=== PATIENT | male | born 1985 | race American Indian/Alaskan Native ===

== ENCOUNTER 2019-04-23 14:12 | Emergency (ER) | payer SELFPAY ==
[2019-04-23 14:30] VITALS: BP 132/90
--- NOTE | 2019-04-23 14:42 | Emergency Department Report ---
Blank Doc - Documentation Documentation: 33-year-old male that presents with n/v, SOB, and CP. This initial assessment/diagnostic orders/clinical plan/treatment(s) is/are subject to change based on patients health status, clinical progression and re- assessment by fellow clinical providers in the ED. Further treatment and workup at subsequent clinical providers discretion. Patient/guardian urged not to elope from the ED as their condition may be serious if not clinically assessed and managed. Initial orders include: cardiac protocol
--- NOTE | 2019-04-23 15:10 | XRay Report ---
CHEST 2 VIEWS INDICATION: Chest Pain. COMPARISON: None FINDINGS: Support devices: None. Heart: Within normal limits. Lungs/pleura: No acute air space or interstitial disease. No pneumothorax. Additional findings: None. IMPRESSION: No acute findings. Signer Name: Arturo Cox Jr, MD Signed: 04/23/2019 3:06 PM Workstation Name: [id number]
[2019-04-23 15:29] LABS: Basophils # (Auto) 0.1 K/mm3 (0.0-0.1); Basophils % (Auto) 0.8 % (0.0-1.8); Eosinophils % (Auto) 0.4 % (0.0-4.3); Hematocrit 47.3 % (35.5-45.6); Hemoglobin 15.4 gm/dl (11.8-15.2); Lymphocytes # (Auto) 1.3 K/mm3 (1.2-5.4); Lymphocytes % (Auto) 13.1 % (13.4-35.0); Mean Corpuscular HGB Conc 33 % (32-34); Mean Corpuscular Volume 87 fl (84-94); Monocytes # (Auto) 1.4 K/mm3 (0.0-0.8); Monocytes % (Auto) 14.1 % (0.0-7.3); Platelet Count 362 K/mm3 (140-440); Red Blood Count 5.43 M/mm3 (3.65-5.03); Red Cell Distribution Width 14.1 % (13.2-15.2)
[2019-04-23] MEDS ORDERED: MORPHINE 4 MG/1 ML INJ IV ONE (15:50)
[2019-04-23] MEDS ORDERED: SODIUM CHLORIDE 0.9% 1000 ML 1,000 ML IV ONE (15:50)
[2019-04-23] MEDS ORDERED: KETOROLAC 30 MG/1 ML INJ IV ONE (15:50)
[2019-04-23 15:53] LABS: Alanine Aminotransferase 13 units/L (7-56); Albumin 3.8 g/dL (3.9-5); BUN/Creatinine Ratio 16; Blood Urea Nitrogen 16 mg/dL (9-20); Calcium 9.8 mg/dL (8.4-10.2); Hemolysis Index 6
[2019-04-23 16:32] LABS: INR 1.12 (0.87-1.13)
[2019-04-23 16:33] LABS: Partial Thromboplastin Time 27.2 Sec. (24.2-36.6)
--- NOTE | 2019-04-23 16:52 | Vascular Lab Report ---
DUPLEX DOPPLER LOWER EXTREMITY VEINS, RIGHT INDICATION: right calf pain after injury. TECHNIQUE: Duplex doppler imaging was performed through the veins of the right lower extremity using venous comp ression and other maneuvers. COMPARISON: No relevant prior imaging study available. FINDINGS: Right Common femoral vein: Negative. Right Superficial femoral vein: Negative. Right Popliteal vein: Negative. Right Calf veins: Negative. Additional findings: None.. IMPRESSION: 1. No sonographic evidence for DVT in the right lower extremity. Signer Name: Mitchell Suarez MD Signed: 04/23/2019 4:48 PM Workstation Name: [id number]
--- NOTE | 2019-04-23 17:11 | Emergency Department Report ---
<LISA PICKENS - Last Filed: 04/23/19 17:08> ED General Adult HPI - General Chief complaint: Nausea/Vomiting/Diarrhea Stated complaint: CATHY/N/V Time Seen by Provider: 04/23/19 14:41 Source: patient, EMS Mode of arrival: Wheelchair Limitations: No Limitations - History of Present Illness Initial comments: Patient is a 33-year-old F [place] male who is presenting with 2 days of chest discomfort in the center chest with shortness of breath and nausea vomiting. Patient states that his chest feels tight and he has had a very mild nonproductive cough. Patient suffered a crush injury to his left foot approximately 1 week ago. He states his multiple fractures. Patient is in a walking boot at home but does not have it on at this time. Patient states that he is has some pain in his left calf as well. Patient denies fever but does have chills. Patient denies nausea vomiting diarrhea at this time. Severity scale (0 -10): 10 - Related Data Previous Rx's Medication Instructions Recorded Last Taken Type Benzonatate [Tessalon Perles] 100 mg PO Q8HR #20 capsule 04/23/19 Unknown Rx Ondansetron [Zofran ODT TAB] 8 mg PO Q12HR #14 tab.rapdis 04/23/19 Unknown Rx Allergies Allergy/AdvReac Type Severity Reaction Status Date / Time No Known Allergies Allergy Unverified 04/23/19 14:22 ED Review of Systems Comment: All other systems reviewed and negative ED Past Medical Hx - Past Medical History Previous Medical History?: No - Surgical History Past Surgical History?: No - Social History Smoking Status: Current Every Day Smoker Substance Use Type: None - Medications Home Medications: Home Medications Medication Instructions Recorded Confirmed Last Taken Type Benzonatate [Tessalon Perles] 100 mg PO Q8HR #20 capsule 04/23/19 Unknown Rx Ondansetron [Zofran ODT TAB] 8 mg PO Q12HR #14 tab.rapdis 04/23/19 Unknown Rx ED Physical Exam - General Limitations: No Limitations General appearance: alert, in no apparent distress - Head Head exam: Present: atraumatic, normocephalic - Eye Eye exam: Present: normal appearance - ENT ENT exam: Present: mucous membranes moist - Neck Neck exam: Present: normal inspection - Respiratory Respiratory exam: Present: normal lung sounds bilaterally, chest wall tenderness. Absent: respiratory distress, wheezes, rales, rhonchi - Cardiovascular Cardiovascular Exam: Present: normal rhythm, tachycardia. Absent: systolic murmur, diastolic murmur, rubs, gallop - GI/Abdominal GI/Abdominal exam: Present: soft, normal bowel sounds. Absent: distended, tenderness, guarding, rebound - Rectal Rectal exam: Present: deferred - Extremities Exam Extremities exam: Present: normal inspection, tenderness, pedal edema, calf tenderness - Back Exam Back exam: Present: normal inspection - Neurological Exam Neurological exam: Present: alert, oriented X3 - Psychiatric Psychiatric exam: Present: normal affect, normal mood - Skin Skin exam: Present: warm, dry, intact, normal color. Absent: rash ED Course - Reevaluation(s) Reevaluation #1: 04/23/19 17:09 Patient is a 33-year-old F [place] male is presenting with calf pain and shortness of breath with chest pain for the last 2 days. Patient is suffered a broken foot approximately week ago. Patient's risk factors for thrombo-embolic events is his recent fracture and immobilization. Ultrasound and VQ scan have been ordered. VQ scan was done secondary to the patient having small veins and being unable to obtain a large enough IV for contrast to be given through. ED Medical Decision Making - Lab Data Result diagrams: 04/23/19 15:12 04/23/19 15:12 Lab Results 04/23/19 04/23/19 04/23/19 Range/Units 15:12 15:12 16:03 WBC 9.6 (4.5-11.0) K/mm3 RBC 5.43 H (3.65-5.03) M/mm3 Hgb 15.4 H (11.8-15.2) gm/dl Hct 47.3 H (35.5-45.6) % MCV 87 (84-94) fl MCH 28 (28-32) pg MCHC 33 (32-34) % RDW 14.1 (13.2-15.2) % Plt Count 362 (140-440) K/mm3 Lymph % (Auto) 13.1 L (13.4-35.0) % [place] % (Auto) 14.1 H (0.0-7.3) % Eos % (Auto) 0.4 (0.0-4.3) % Baso % (Auto) 0.8 (0.0-1.8) % Lymph # 1.3 (1.2-5.4) K/mm3 [place] # 1.4 H (0.0-0.8) K/mm3 Eos # 0.0 (0.0-0.4) K/mm3 Baso # 0.1 (0.0-0.1) K/mm3 Seg Neutrophils % 71.6 H (40.0-70.0) % Seg Neutrophils # 6.9 (1.8-7.7) K/mm3 PT 14.6 (12.2-14.9) Sec. INR 1.12 (0.87-1.13) APTT 27.2 (24.2-36.6) Sec. Sodium 138 (137-145) mmol/L Potassium 4.3 (3.6-5.0) mmol/L Chloride 98.6 (98-107) mmol/L Carbon Dioxide 21 L (22-30) mmol/L Anion Gap 23 mmol/L BUN 16 (9-20) mg/dL Creatinine 1.0 (0.8-1.5) mg/dL Estimated GFR > 60 ml/min BUN/Creatinine Ratio 16 % Glucose 90 (75-100) mg/dL Calcium 9.8 (8.4-10.2) mg/dL Total Bilirubin 0.60 (0.1-1.2) mg/dL AST 12 (5-40) units/L ALT 13 (7-56) units/L Alkaline Phosphatase 77 (35-129) units/L Troponin T < 0.010 (0.00-0.029) ng/mL Total Protein 9.3 H (6.3-8.2) g/dL Albumin 3.8 L (3.9-5) g/dL Albumin/Globulin Ratio 0.7 % - EKG Data -: EKG Interpreted by Ar EKG shows normal: sinus rhythm (rate 97), axis, intervals, QRS complexes, ST-T waves - EKG Data Interpretation: normal EKG ED Disposition Clinical Impression: Acute chest pain, Viral syndrome, Gastroenteritis, Pain due to fracture Disposition: TO HOME OR SELFCARE Condition: Stable Instructions: Chest Pain (ED), Viral Syndrome (ED), Acute Nausea and Vomiting (ED) Referrals: PRIMARY CARE, [Primary Care Provider] - 3-5 Days SELIN FIELD MD [Staff Physician] - 3-5 Days <OSCARSHAWNAЕКАТЕРИНА - Last Filed: 04/23/19 18:57> ED Review of Systems ROS: Stated complaint: CATHY/N/V Other details as noted in HPI ED Course Vital Signs 04/23/19 14:28 Temperature 99.2 F Pulse Rate 103 H Respiratory 22 Rate Blood Pressure 132/90 O2 Sat by Pulse 100 Oximetry ED Medical Decision Making - Lab Data Result diagrams: 04/23/19 15:12 04/23/19 15:12 - Radiology Data Radiology results: report reviewed Patient Name: TANYA MOORE Gender: Male Date of : 1985 Referring Provider: LISA PICKENS Organization: [facility] Accession Number: [id number] Requested Date: April 23, 2019 16:05 Report Status: Final Requested Procedure: 1 Procedure Description: NM lung scan perf/vent Modality: NM Findings Reporting MD: Kenneth Bower Dictation Time: April 23, 2019 16:59 Ur Coordinator: Not available Machine Heel Seat Fitter Date: NM lung scan perf/vent INDICATION / CLINICAL INFORMATION: pleuritic chest pain. TRACER: Xenon-133 gas 13.93 mCi inhalation and technetium 99m MAA 5.1 mCi IV injection. COMPARISON: Chest x-ray 04/23/2019 FINDINGS: Nuclear medicine ventilation and perfusion lung imaging were performed. Both are homogeneous. No suspicious ventilation or perfusion defect. IMPRESSION: Normal VQ scan. Signer Name: Kenneth Bower MD Signed: 04/23/2019 4:59 PM Workstation Name: [id number] Critical care attestation.: If time is entered above; I have spent that time in minutes in the direct care of this critically ill patient, excluding procedure time. ED Disposition Is pt being admited?: No Does the pt Need Aspirin: No
--- NOTE | 2019-04-23 18:03 | Nuclear Medicine Report ---
NM lung scan perf/vent INDICATION / CLINICAL INFORMATION: pleuritic chest pain. TRACER: Xenon-133 gas 13.93 mCi inhalation and technetium 99m MAA 5.1 mCi IV injection. COMPARISON: Chest x-ray 04/23/2019 FINDINGS: Nuclear medicine ventilation and perfusion lung imaging were performed. Both are homogeneous. No susp icious ventilation or perfusion defect. IMPRESSION: Normal VQ scan. Signer Name: Kenneth Bower MD Signed: 04/23/2019 5:59 PM Workstation Name: [id number]
== END 2019-04-23 19:18 | disposition home or self-care (01) ==
LOC: ED 14:12
DX: K52.9 Noninfective gastroenteritis and colitis, unspecified (principal); B34.9 Viral infection, unspecified; M79.605 Pain in left leg; F17.200 Nicotine dependence, unspecified, uncomplicated
CPT/HCPCS: 36415; 71046; 78582; 80053; 84484; 85025; 85610; 85730; 93005; 93010; 93971; 96361; 96374; 96375; 99285; A9540; A9558; J1885; J2270; J7030